=== PATIENT | male | born 1990 | race Caucasian/White ===

== ENCOUNTER 2019-04-17 09:46 | Day surgery (SDC) | payer BC, OTHER ==
[~2019-04-17 09:46] MED LIST: Lactated Ringers 1,000 ML IV SCH; Lidocaine 1%/Sod Bicarbonate in NS 8.4% 1 ML Syringe IDERM PRN; Sodium Chloride 0.9% 10 ML Syringe FLUSH PRN; fentaNYL 250 MCG/5 ML SDV ONE
--- NOTE | 2019-04-17 10:28 | PCM.PREANE ---
Preanesthetic Assessment - Anesthesia/Transfusion/Family Hx Anesthesia History: No Prior Anesthesia Family History of Anesthesia Reaction: No Transfusion History: No Prior Transfusion(s) - Review of Systems General: No Symptoms Pulmonary: No Symptoms (Former smoker. Currently vapes. ) Cardiovascular: No Symptoms Gastrointestinal: Other (GERD on Nexium for control. ) Neurological: No Symptoms Other: Reports: None (Morbid Obesity BMI 44) - Physical Assessment NPO Status Date: 04/16/19 NPO Status Time: 22:00 O2 Sat by Pulse Oximetry: 97 Respiratory Rate: 16 Vital Signs: Last Vital Signs Temp 36.7 C 04/17/19 09:55 Pulse 74 04/17/19 09:55 Resp 16 04/17/19 09:55 BP 138/83 04/17/19 09:55 Pulse Ox 97 04/17/19 09:55 Height: 1.91 m Weight: 164.654 kg ASA Class: 2 Mental Status: Alert & Oriented x3 Airway Class: Mallampati = 2 Dentition: Reports: Normal Dentition Thyro-Mental Finger Breadths: 3 Mouth Opening Finger Breadths: 3 ROM/Head Extension: Full Lungs: Clear to Auscultation, Normal Respiratory Effort Cardiovascular: Regular Rate, Regular Rhythm - Allergies Allergies/Adverse Reactions: Allergies Allergy/AdvReac Type Severity Reaction Status Date / Time Penicillins Allergy Cannot Verified 04/14/19 15:19 Remember - Acknowledgements Anesthesia Type Planned: MAC Pt an Appropriate Candidate for the Planned Anesthesia: Yes Alternatives and Risks of Anesthesia Discussed w Pt/Guardian: Yes Pt/Guardian Understands and Agrees with Anesthesia Plan: Yes Additional Comments: MAC possible General per Dr. Carlson. PreAnesthesia Questionnaire HEENT History: Reports: Impaired Vision Cardiovascular History: Reports: None Respiratory History: Reports: None Gastrointestinal History: Reports: GERD Genitourinary History: Reports: None ELECTROMATIC TYPIST History: Reports: Endometrial Ablation Musculoskeletal History: Reports: None Neurological History: Reports: None Psychiatric History: Reports: None Endocrine/Metabolic History: Reports: None Hematologic History: Reports: None Immunologic History: Reports: None Oncologic (Cancer) History: Reports: None Dermatologic History: Reports: None - Past Surgical History Head Surgeries/Procedures: Reports: None HEENT Surgical History: Reports: Oral Surgery Cardiovascular Surgical History: Reports: None Respiratory Surgical History: Reports: None GI Surgical History: Reports: None Female Surgical History: Reports: None Male Surgical History: Reports: None Endocrine Surgical History: Reports: None Neurological Surgical History: Reports: None Musculoskeletal Surgical History: Reports: None Oncologic Surgical History: Reports: None Dermatological Surgical History: Reports: Other (See Below) - SUBSTANCE USE Smoking Status *Q: Current Every Day Smoker Tobacco Use Within Last Twelve Months: Other (See Below) Other Tobacco Use Within Last Twelve Months: vapes Days Per Week of Alcohol Use: 3 Number of Drinks Per Day: 2 Total Drinks Per Week: 6 Recreational Drug Use History: No - HOME MEDS Home Medications: Home Meds Esomeprazole Magnesium [Nexium] 40 mg PO DAILY 04/14/19 [History] - CURRENT (IN HOUSE) MEDS Current Meds: Current Medications Lactated Ringer's (Ringers, Lactated) 1,000 mls @ 125 mls/hr IV ASDIRECTED FLO Stop: 04/17/19 23:00 Last Admin: 04/17/19 10:05 Dose: 125 mls/hr Lidocaine/Sodium Bicarbonate (Buffered Lidocaine 1% In Ns 8.4%) 0.25 ml IDERM ONETIME PRN PRN Reason: Prior to IV Start Stop: 04/17/19 18:00 Last Admin: 04/17/19 10:05 Dose: 0.25 ml Sodium Chloride (Saline Flush) 10 ml FLUSH ASDIRECTED PRN PRN Reason: Keep Vein Open Stop: 04/17/19 18:00 Discontinued Medications Fentanyl (Sublimaze) Confirm Administered Dose 250 mcg .ROUTE .STK-MED ONE Stop: 04/17/19 08:58
[2019-04-17] MEDS ORDERED: ceFAZolin 1 GM Vial ONE (10:45)
[2019-04-17] MEDS ORDERED: Propofol 200 MG/20 ML SDV ONE ×4 (11:10→12:45)
[2019-04-17] MEDS ORDERED: Midazolam 1 MG/ML 2 ML SDV ONE ×5 (11:12→12:18)
[2019-04-17] MEDS ORDERED: Albuterol 0.083% 2.5 MG/3 ML Neb Soln NEB PRN (11:12)
[2019-04-17] MEDS ORDERED: Ondansetron 4 MG/2 ML SDV ONE (11:20)
[2019-04-17] MEDS ORDERED: Rocuronium 50 MG/5 ML Vial ONE (11:21)
[2019-04-17] MEDS ORDERED: Succinylcholine/Normal Saline 100 MG/5 ML Syringe ONE (11:21)
[2019-04-17] MEDS: Lidocaine 1% 30 ML SDV ONE ×2 (12:18→12:25)
[2019-04-17] MEDS: Bupivacaine 0.5% 30 ML SDV ONE ×2 (12:18→12:25)
[2019-04-17] MEDS ORDERED: Ketorolac 30 MG/ML SDV ONE (13:06)
--- NOTE | 2019-04-17 13:31 | PCM.OPNOTE ---
- General Post-Op/Procedure Note Date of Surgery/Procedure: 04/17/19 Operative Procedure(s): umbilical hernia repair with mesh Pre Op Diagnosis: umbilical hernia Post-Op Diagnosis: Same Anesthesia Technique: General ET Tube, General LMA, MAC Primary Surgeon: Justus Carlson EBL in mLs: 5 Complications: None Condition: Good
--- NOTE | 2019-04-17 13:45 | PCM48HPAN ---
Post Anesthesia Note - EVALUATION WITHIN 48HRS OF ANESTHETIC Vital Signs in Normal Range: Yes Patient Participated in Evaluation: Yes Respiratory Function Stable: Yes Airway Patent: Yes Hydration Status Stable: Yes Pain Control Satisfactory: Yes Nausea and Vomiting Control Satisfactory: Yes Mental Status Recovered: Yes Resp Rate: 16
--- NOTE | 2019-04-17 13:45 | PCM.POSTAN ---
POST ANESTHESIA ASSESSMENT - MENTAL STATUS Mental Status: Alert - RESPIRATORY Respiratory Status: Respiratory Rate WNL, Airway Patent, O2 Saturation Stable, Supplemental Oxygen - CARDIOVASCULAR CV Status: Pulse Rate WNL, Blood Pressure Stable - GASTROINTESTINAL GI Status: No Symptoms - POST OP HYDRATION Hydration Status: Adequate & Stable
[2019-04-17] MEDS ORDERED: Acetaminophen/HYDROcodone 325-5 MG Tab PO PRN (13:50)
--- NOTE | 2019-04-18 07:36 | OR ---
DATE OF OPERATION: 04/17/2019 SURGEON: Justus Carlson MD PREOPERATIVE DIAGNOSIS: Umbilical hernia with herniation of omentum into umbilical hernia. POSTOPERATIVE DIAGNOSIS: Umbilical hernia with herniation of omentum into umbilical hernia. FINDINGS: 4 cm umbilical hernia. OPERATION PERFORMED: Repair with mesh done under intravenous sedation and later general anesthetic. ESTIMATED BLOOD LOSS: About 5 mL. DESCRIPTION OF PROCEDURE: The patient taken to the operating room, placed in a supine position, connected to monitoring equipment, given IV sedation. The SCDs were placed and antibiotics were given. The abdomen was clipped and prepped with chlorhexidine, alcohol prepped, draped off in a sterile fashion. 0.5% Marcaine with 1% Xylocaine was infiltrated in the skin around the umbilicus and deeper tissues. A curvilinear subumbilical incision was made and carried down by sharp dissection to the fascia. The umbilicus was then from the hernia sac and the hernia sac opened up and reduced. Pursestring suture of 2-0 Vicryl suture was placed under direct vision and cut and tied and then cut, and then the redundant hernia sac amputated. The preperitoneal fat was then developed to space and bleeding points were controlled with electrocautery and suture ligature of 3-0 Vicryl suture. A Ventralex ST hernia patch measuring 8 cm was used and the lot number was [id number]. The hernia was closed over this patch using 0 Ethibond and the 2 tails were tied down to the fascia using 0 Ethibond. Subcuticular tissue was then closed with 3-0 Vicryl suture and the skin with a subdermal 4-0 Dexon suture. Steri-Strips and sterile dressing placed. The patient tolerated the procedure and sent to recovery room in a stable condition. ANESTHESIA: MMODAL /[id number]
== END 2019-04-17 14:55 | disposition home or self-care (01) ==
LOC: JD.SDS 09:46
PROVIDERS: ATTEND Surgery
DX: K42.9 Umbilical hernia without obstruction or gangrene (principal); K21.9 Gastro-esophageal reflux disease without esophagitis; F17.290 Nicotine dependence, other tobacco product, uncomplicated; E66.01 Morbid (severe) obesity due to excess calories; Z68.41 Body mass index [BMI] 40.0-44.9, adult; Z88.0 Allergy status to penicillin; Z79.899 Other long term (current) drug therapy
CPT/HCPCS: 49585; 94640; A9270; J0690; J1885; J2001; J2250; J2405; J2704; J3010; J3490; J7120; 00790; C1781; J0330